=== PATIENT | male | born 1950 | race Caucasian/White ===

== ENCOUNTER 2025-03-30 07:22 | Outpatient (CLI) | payer BC ==
[2025-03-30 08:35] LABS: Hemoglobin 18.3 g/dL (13.5-17.5)
[2025-03-30 08:37] LABS: Hematocrit 53.5 % (41.0-53.0); Mean Corpuscular Hemoglobin 32.2 pg (28.0-32.0); Mean Corpuscular Volume 94.3 fL (80.0-100.0); Nucleated Red Blood Cells % 0.1 %
[2025-03-30 08:41] LABS: Urine Protein, UAD TRACE (Negative)
[2025-03-30 08:50] LABS: Alanine Aminotransferase 21 U/L (7-40); Albumin 3.9 g/dL (3.2-4.8); Alkaline Phosphatase 110 U/L (46-116); Anion Gap 10 (5-15); BUN/Creatinine Ratio 14.0 (10.0-20.0); Blood Urea Nitrogen 18 mg/dL (9-23); Calcium 9.5 mg/dL (8.7-10.4); Carbon Dioxide 26 mmol/L (20-31); Chloride 105 mmol/L (98-107); Cholesterol 191 mg/dL (< 200); Glucose 106 mg/dL (74-106); Potassium 4.2 mmol/L (3.5-5.1); Sodium 141 mmol/L (136-145); Total Protein 8.2 g/dL (5.7-8.2)
[2025-03-30 08:51] LABS: Bilirubin, Total 0.4 mg/dL (0.2-1.0)
[2025-03-30 08:57] LABS: HDL Cholesterol 37 mg/dL (40-59); Triglycerides 161 mg/dL (< 150)
== END 2025-03-30 17:00 | disposition home or self-care (01) ==
LOC: LAB 07:22
PROVIDERS: ATTEND Student in an Organized Health Care Education/Training Program
DX: E55.9 Vitamin D deficiency, unspecified (principal); R35.1 Nocturia; R73.9 Hyperglycemia, unspecified; R03.0 Elevated blood-pressure reading, without diagnosis of hypertension
CPT/HCPCS: 36415; 80053; 80061; 81001; 82306; 83036; 84153; 84443; 85025